=== PATIENT | male | born 1990 | race Caucasian/White ===

== ENCOUNTER 2019-11-04 | Emergency (ER) | payer OTHER | END 2019-11-04 19:09 | disposition home or self-care (01) | DRG 999 | DX: R04.2 Hemoptysis (principal); S02.19XA Other fracture of base of skull, initial encounter for closed fracture; S00.83XA Contusion of other part of head, initial encounter; Y09 Assault by unspecified means; Y92.149 Unspecified place in prison as the place of occurrence of the external cause ==